=== PATIENT | female | born 1955 | race Caucasian/White ===

== ENCOUNTER 2017-12-11 04:52 | Day surgery (SDC) | payer OTHER ==
[2017-12-09 17:23] VITALS: BMI 27.6
[2017-12-11] MEDS ORDERED: CLINDAMYCIN 300 MG PREMIX IVPB 300 MG/50 ML BAG IVPB ONE (07:14)
[2017-12-11] MEDS ORDERED: PHENAZOPYRIDINE HCL 100 MG TABLET (FP) PO ONE ×2 (07:15→07:41)
[2017-12-11] MEDS ORDERED: BUPIVACAINE HCL/PF 0.5% (5MG/ML) 10 ML VIAL ONE (07:23)
[2017-12-11] MEDS ORDERED: fentaNYL CITRATE 250 MCG/5 ML VIAL ONE (07:24)
[2017-12-11] MEDS ORDERED: ePHEDrine SULFATE 50 MG/1 ML AMPULE ONE (07:24)
[2017-12-11] MEDS ORDERED: ROCURONIUM BROMIDE 50 MG/5 ML VIAL ONE ×3 (07:24)
[2017-12-11] MEDS ORDERED: SUCCINYLCHOLINE CHLORIDE 200 MG/10 ML VIAL ONE (07:24)
[2017-12-11] MEDS ORDERED: PROPOFOL 20 ML ONE ×3 (07:24)
[2017-12-11] MEDS ORDERED: MIDAZOLAM HCL 2 MG/2 ML SINGLE DOSE VIAL ONE (07:25)
[2017-12-11] MEDS ORDERED: LIDOCAINE HCL/PF 2% SDV 5ML VIAL ONE (07:31)
--- NOTE | 2017-12-11 07:41 | HP ---
History & Physical Update - History History: No Change - Physical Physical: No Change - Assessment Assessment: No Change - Plan Plan: No Change (no changes since visit with Dr Tsai on 12/09/17)
[2017-12-11] MEDS ORDERED: DESFLURANE GAS 240 ML BOTTLE IH ONE (08:49)
[2017-12-11] MEDS ORDERED: GENTAMICIN SO4 80 MG/2 ML VIAL ONE (08:50)
[2017-12-11] MEDS ORDERED: GENTAMICIN SO4 80 MG/2 ML VIAL IVPB ONE (09:01)
[2017-12-11] MEDS ORDERED: DEXAMETHASONE SOD PHOSPHATE 4 MG/1 ML VIAL ONE (09:03)
[2017-12-11] MEDS ORDERED: PROMETHAZINE HCL 25 MG/1 ML VIAL IVPUSH PRN (09:12)
[2017-12-11] MEDS ORDERED: BUPIVACAINE HCL/PF 0.5% (5MG/ML) 10 ML VIAL IJ ONE ×3 (10:08→10:29)
[2017-12-11] MEDS ORDERED: NEOSTIGMINE METHYLSULFATE 0.5 MG/ML - 10 ML MDV ONE (10:34)
[2017-12-11] MEDS ORDERED: GLYCOPYRROLATE 0.2 MG/1 ML VIAL ONE (10:42)
[2017-12-11] MEDS: ACETAMINOPHEN 1000 MG/100 ML VIAL (NON FORMULARY) IVPB ONE ×2 (11:00→18:54)
[2017-12-11] MEDS ORDERED: oxyCODONE HCL 5 MG TABLET PO PRN ×2 (11:10)
[2017-12-11] MEDS ORDERED: LEVOTHYROXINE NA 50 MCG TABLET (FP) PO SCH (11:15)
[2017-12-11] MEDS ORDERED: LACTATED RINGERS SOLUTION 1,000 ML IV SCH (11:15)
--- NOTE | 2017-12-11 11:27 | OP ---
DATE OF OPERATION: 12/11/2017 PREOPERATIVE DIAGNOSIS: Cervical dysplasia. OPERATION: Laparoscopic robotic total hysterectomy and bilateral salpingectomy. SURGEON: Rin Abad MD SCALE SHOOTER: LORELEI Ram ANESTHESIA: General. ANESTHESIOLOGIST: Nurse datastage developer, Giorgio Pisano MD DESCRIPTION OF PROCEDURE: The patient was taken to the operating room and placed in dorsal lithotomy position, prepped and draped in the usual sterile fashion. A time-out was performed in accordance with hospital regulation. Brown catheter was placed into the bladder. Specimen was placed in the vagina. Anterior lip of the cervix was grasped with a single-tooth tenaculum. The cervix was then dilated to accommodate the uterine manipulator. The manipulator was then placed around the cervix. Attention was then drawn to the umbilicus where an 8-mm umbilical incision was made. Veress needle was inserted into the cavity. Approximately 3-4 L of CO2 was insufflated in the cavity. The Veress needle was then removed, and an 8-mm trocar was then inserted. Laparoscope and camera attached. Visualization revealed small uterus, normal tubes and ovaries. Trocars were then placed on the left side in the upper abdomen, and 5mm cannula after 5-mm incision was made, and an 8-mm incision and trocar was made parallel to the umbilical incision. Trocar was inserted under direct visualization. Two trocars were placed on the right side parallel to the umbilical incision 8 mm apart. Using scalpel, incisions were made 8 mm, and trocars were then inserted under direct visualization. After placement of the trocars was confirmed, Da Sahil robot was then side docked to the patient's arm. Trocars were then inserted onto the Da Sahil robot, and laparoscopic tenaculum and Endo Jorge Luis were then placed on the right side, and vessel sealer was then directly placed inside close to the uterus. After the instruments had been placed, attention was then drawn to the console where control of the console was done. Tenaculum was then used to grasp the uterus, and utero-ovarian ligament was identified, clamped, and cut using vessel sealer. The uterine artery was identified, clamped, and cut using vessel sealer. Vesicular uterine reflection was then entered. The bladder was then bluntly dissected out of the operative field. The cardinal ligaments then broad ligaments were identified, clamped, and cut down to the level of the cervix. The uterine manipulator was identified, and Endo Jorge Luis were then used to cut the vagina. Uterine manipulator was seen. The same procedure was then repeated on the right side after bladder had been bluntly dissected out of the way. All ligaments were then cut in order, and the Endo Jorge Luis were then used to cut the vagina away from the cervix. Hemostasis was achieved. The tubes were bilaterally grasped, and the vessel sealer was then used to coagulate and cut the tubes away from the ovaries. The ovaries were very normal. The uterus and the cervix were then removed from the vagina as well as both left and right tubes. Hemostasis was achieved. Ureters were identified and found to have deep peristalsis. The 2-0 V-Lock suture was introduced into the abdomen. Da Sahil robot was used to close the vaginal cuff in a continuous fashion over sewing nursing home. Hemostasis was achieved, and all instruments were then removed. The tube was removed from the abdomen, and needle was removed from the abdomen. Incisions were then closed using 4-0 Biosyn suture in subcuticular fashion. The wound was washed and dressed. The patient had tolerated the procedure well. Estimated blood loss less than 25 mL. Instrument and pack count were noted to be normal. RIN ABAD M.D. [id number] MTDD
--- NOTE | 2017-12-11 11:52 | OP ---
<Elaine Vogel - Last Filed: 12/11/17 11:47> Operative Note - Note: Operative Date: 12/11/17 Operation: robotic total hysterectomy with bilateral salpingectomy Surgeon: Iman Tsai Cloth Folder Hand: Carol Bloom Anesthesiologist/HOUSING RELOCATION: Trent Graham Anesthesia: General Specimens Removed: hysterectomy, bialateral salpingx Estimated Blood Loss (mls): 20 Drains, Volume Out (mls): 75 (cheung) Fluid Volume Replaced (mls): 800 Operative Report Dictated: Yes <Iman Tsai - Last Filed: 12/12/17 10:10> Operative Note - Note: Operation: Robotic laparoscopic Total hysterectomy. bilateral salpingectomy Estimated Blood Loss (mls): 25
[2017-12-11] MEDS ORDERED: GENTAMICIN 80 MG PREMIXED IVPB 80 MG/100 ML BAG IVPB SCH (15:32)
[2017-12-11] MEDS ORDERED: IBUPROFEN 800 MG/8 ML IJ IVPB PRN (16:03)
[2017-12-11] MEDS: ACETAMINOPHEN 650 MG/20.3 ML ORAL SOLUTION (CUPS) PO SCH ×2 (17:47→23:05)
[2017-12-11 21:27] LABS: BASO % 0.3 % (0-2.0); HEMATOCRIT 36.6 % (32.4-45.2); LYMPH % 10.7 % (8-40); MCH 27.9 pg (25.7-33.7); MCHC 32.8 g/dl (32.0-36.0); MEAN CELL VOLUME 84.9 fl (80-96); MEAN PLT VOLUME 7.8 fl (7.5-11.1); MONO % 2.4 % (3.8-10.2); NEUT % 86.6 % (42.8-82.8); PLATELET COUNT 234 K/MM3 (134-434); RBC 4.31 M/mm3 (3.60-5.2); RDW 15.5 % (11.6-15.6); WHITE BLOOD COUNT 11.3 K/mm3 (4.0-10.0)
[2017-12-11 21:53] LABS: ANION GAP 10 MMOL/L (8-16); BLOOD UREA NITROGEN 14 mg/dL (7-18); CALCIUM 8.2 mg/dL (8.5-10.1); CHLORIDE 105 mmol/L (98-107); CO2 22 mmol/L (21-32); CREATININE 0.9 mg/dL (0.55-1.02); GLUCOSE,RANDOM 140 mg/dL (74-106); POTASSIUM 4.4 mmol/L (3.5-5.1); SODIUM 137 mmol/L (136-145)
[2017-12-11] MEDS ORDERED: traZODone HCL 100 MG TABLET (FP) PO SCH (22:00)
[2017-12-11] MEDS ORDERED: ROSUVASTATIN CA 10 MG TABLET (FP) PO SCH (22:00)
[2017-12-11] MEDS ORDERED: PATIENT'S OWN MEDICATION (NON-FORMULARY) (Vortioxetine Hydrobromide [Trintellix] 10 MG) PO SCH (22:00)
[2017-12-12] MEDS: ACETAMINOPHEN 650 MG/20.3 ML ORAL SOLUTION (CUPS) PO SCH (06:05)
[2017-12-12] MEDS ORDERED: LEVOTHYROXINE NA 50 MCG TABLET (FP) PO SCH (07:00)
[2017-12-12 08:00] LABS: HEMATOCRIT 36.3 % (32.4-45.2); HEMOGLOBIN 11.6 GM/dL (10.7-15.3); MCH 27.2 pg (25.7-33.7); MCHC 32.1 g/dl (32.0-36.0); MEAN CELL VOLUME 84.7 fl (80-96); MEAN PLT VOLUME 7.6 fl (7.5-11.1); PLATELET COUNT 236 K/MM3 (134-434); RBC 4.28 M/mm3 (3.60-5.2); RDW 15.4 % (11.6-15.6); WHITE BLOOD COUNT 13.4 K/mm3 (4.0-10.0)
[2017-12-12 08:45] LABS: CHLORIDE 104 mmol/L (98-107); POTASSIUM 4.3 mmol/L (3.5-5.1); SODIUM 136 mmol/L (136-145)
[2017-12-12 08:51] LABS: ANION GAP 8 MMOL/L (8-16); BLOOD UREA NITROGEN 14 mg/dL (7-18); CALCIUM 7.8 mg/dL (8.5-10.1); CO2 24 mmol/L (21-32); CREATININE 0.8 mg/dL (0.55-1.02); GLUCOSE,RANDOM 98 mg/dL (74-106)
[2017-12-12 09:19] VITALS: BP 125/76; PULSE 68; TEMP 97.8
[2017-12-12] MEDS ORDERED: GENTAMICIN 80 MG PREMIXED IVPB 80 MG/100 ML BAG IVPB SCH (10:00)
[2017-12-12] MEDS ORDERED: ENOXAPARIN NA (PORCINE) 30 MG/0.3 ML DISP.SYRIN SQ SCH (10:00)
[2017-12-12] MEDS ORDERED: CALCIUM CARBONATE 650 MG TABLET PO SCH (10:00)
[2017-12-12] MEDS ORDERED: ENOXAPARIN NA (PORCINE) 40 MG/0.4 ML DISP.SYRIN SQ SCH (10:00)
--- NOTE | 2017-12-12 10:25 | DS ---
Physical Exam: SUBJECTIVE: Patient seen and examined. No acute events since surgery per RN notes. Doing well. C/o mild incisional tenderness. Adequate pain control via PRN meds. She is oob and ambulating unassisted. Voiding spontaneously. Tolerating PO diet. Denies n/v/f/c, CP or SOB. OBJECTIVE: Vital Signs Temperature 97.8 F 12/12/17 09:17 Pulse Rate 68 12/12/17 09:17 Respiratory Rate 20 12/12/17 09:17 Blood Pressure 125/76 12/12/17 09:17 O2 Sat by Pulse Oximetry (%) 96 12/11/17 14:02 PHYSICAL EXAM GENERAL: The patient is awake, alert, and fully oriented, in no acute distress. HEAD: Normal with no signs of trauma. EYES: PERRL, extraocular movements intact, sclera anicteric, conjunctiva clear. ENT: Ears normal, nares patent, oropharynx clear without exudates, moist mucous membranes. NECK: Trachea midline, full range of motion, supple. LUNGS: Breath sounds equal, clear to auscultation bilaterally, no wheezes, no crackles, no accessory muscle use. HEART: Regular rate and rhythm, S1, S2 without murmur, rub or gallop. ABDOMEN: All surgical ports c/d/i. No hematoma. EXTREMITIES: 2+ pulses, warm, well-perfused, no edema. NEUROLOGICAL: Cranial nerves II through XII grossly intact. Normal speech, gait not observed. PSYCH: Normal mood, normal affect. SKIN: Warm, dry, normal turgor, no rashes or lesions noted. LABS CBC,CMP WBC 13.4 K/mm3 (4.0-10.0) H 12/12/17 06:10 RBC 4.28 M/mm3 (3.60-5.2) 12/12/17 06:10 Hgb 11.6 GM/dL (10.7-15.3) 12/12/17 06:10 Hct 36.3 % (32.4-45.2) 12/12/17 06:10 MCV 84.7 fl (80-96) 12/12/17 06:10 MCH 27.2 pg (25.7-33.7) 12/12/17 06:10 MCHC 32.1 g/dl (32.0-36.0) 12/12/17 06:10 RDW 15.4 % (11.6-15.6) 12/12/17 06:10 Plt Count 236 K/MM3 (134-434) 12/12/17 06:10 MPV 7.6 fl (7.5-11.1) 12/12/17 06:10 Absolute Neuts (auto) 9.8 K/mm3 (1.5-8.0) H 12/11/17 20:15 Neutrophils % 86.6 % (42.8-82.8) H D 12/11/17 20:15 Lymphocytes % 10.7 % (8-40) D 12/11/17 20:15 Monocytes % 2.4 % (3.8-10.2) L 12/11/17 20:15 Eosinophils % 0.0 % (0-4.5) D 12/11/17 20:15 Basophils % 0.3 % (0-2.0) 12/11/17 20:15 Nucleated RBC % 0 % (0-0) 12/11/17 20:15 Sodium 136 mmol/L (136-145) 12/12/17 06:10 Potassium 4.3 mmol/L (3.5-5.1) 12/12/17 06:10 Chloride 104 mmol/L (98-107) 12/12/17 06:10 Carbon Dioxide 24 mmol/L (21-32) 12/12/17 06:10 Anion Gap 8 MMOL/L (8-16) 12/12/17 06:10 BUN 14 mg/dL (7-18) 12/12/17 06:10 Creatinine 0.8 mg/dL (0.55-1.02) 12/12/17 06:10 Creat Clearance w eGFR > 60 (>60) 12/12/17 06:10 Random Glucose 98 mg/dL (74-106) 12/12/17 06:10 Calcium 7.8 mg/dL (8.5-10.1) L 12/12/17 06:10 HOSPITAL COURSE: Date of Admission:12/11/17 Date of Discharge: 12/12/17 The patient was admitted to the Med-Surg Unit s/p Robotic laparoscopic Total hysterectomy. bilateral salpingectomy. The day of surgery, the patient ambulated the hallways without assistance. Narcotic and non-narcotic pain management control was achieved with an oral and IV approach. Kaylene-operative IV ABX were administered. DVT prophylaxis was achieved with SCDs and early ambulation. Narcotic scripts and or muscle relaxants were checked with [employer] PHOTOGRAPHIC EQUIPMENT TECHNICIAN prior to escribe. The discharge instructions and an oral pain management plan were reviewed with the patient. All questions answered. Above plan discussed with Dr. Tsai and agreed. Minutes to complete discharge: 15 Visit type - Case Type Case Type: Scheduled - New patient This patient is new to me today: Yes Date on this admission: 12/12/17
--- NOTE | 2017-12-12 11:06 | PN ---
Progress Note, Physician Chief Complaint: day 1 s/p robotic assisted laparoscopic hysterectomy - Current Medication List Current Medications: Active Medications Calcium Carbonate (Calcium Carbonate -) 1,300 mg PO DAILY [facility] Last Admin: 12/12/17 09:50 Dose: 1,300 mg Enoxaparin Sodium (Lovenox -) 40 mg SQ DAILY [facility] Last Admin: 12/12/17 09:51 Dose: 40 mg Lactated Ringer's (Lactated Ringers Solution) 1,000 mls @ 125 mls/hr IV ASDIR [facility] Last Admin: 12/11/17 23:06 Dose: 125 mls/hr Ibuprofen (Caldolor Injection -) 800 mg IVPB Q6H PRN PRN Reason: PAIN LEVEL 1-5 Last Admin: 12/11/17 15:55 Dose: 800 mg Levothyroxine Sodium (Synthroid -) 50 mcg PO DAILY@0700 [facility] Last Admin: 12/12/17 06:05 Dose: 50 mcg Non-Formulary Medication (Vortioxetine Hydrobromide [Trintellix]) 10 mg PO [facility] Last Admin: 12/11/17 21:09 Dose: 10 mg Oxycodone HCl (Roxicodone -) 5 mg PO Q6H PRN PRN Reason: PAIN LEVEL 1-5 Oxycodone HCl (Roxicodone -) 10 mg PO Q6H PRN PRN Reason: PAIN LEVEL 6-10 Promethazine HCl (Phenergan Injection -) 12.5 mg IVPUSH Q6H PRN PRN Reason: NAUSEA-FOR RESCUE AFTER 15 MIN Rosuvastatin Calcium (Crestor -) 10 mg PO [facility] Last Admin: 12/11/17 21:08 Dose: 10 mg Trazodone HCl (Desyrel -) 200 mg PO [facility] Last Admin: 12/11/17 21:08 Dose: 200 mg - Objective Vital Signs: Vital Signs Temperature 97.8 F 12/12/17 09:17 Pulse Rate 68 12/12/17 09:17 Respiratory Rate 20 12/12/17 09:17 Blood Pressure 125/76 12/12/17 09:17 O2 Sat by Pulse Oximetry (%) 96 12/11/17 14:02 Labs: CBC, BMP 12/12/17 06:10 12/12/17 06:10 Assessment/Plan Doing well after GA. No anesthetic issues/complications, pain well tolerated- pt is for discharge today
--- NOTE | 2017-12-16 09:32 | PATH ---
Surgical Pathology Report Patient Name: NOMI NUNO [facility]. Rec. #: [id number] /Age/Gender: 1955 (Age: 62) / F Account: [id number] Location: AMBULATORY SURG Taken: 12/11/2017 Received: 12/11/2017 Reported: 12/16/2017 Physicians: Iman Tsai M.D. Specimen(s) Received A: LEFT FALLOPIAN TUBE B: RIGHT FALLOPIAN TUBE C: UTERUS AND CERVIX Clinical History A Dysplasia Final Diagnosis A. FALLOPIAN TUBE, LEFT, SALPINGECTOMY: FALLOPIAN TUBE WITH DENSE ADHESIONS AND STROMAL FIBROSIS (INCLUDING FULL LUMINAL PORTION AND FIMBRIATED END). B. FALLOPIAN TUBE, RIGHT, SALPINGECTOMY: FALLOPIAN TUBE WITH DENSE ADHESIONS, STROMAL FIBROSIS, AND SMALL PARATUBAL CYST (INCLUDING FULL LUMINAL PORTION). C. UTERUS AND CERVIX, ROBOTIC LAPAROSCOPIC HYSTERECTOMY: FOCAL HIGH GRADE SQUAMOUS INTRAEPITHELIAL LESION (CERVICAL INTRAEPITHELIAL NEOPLASIA 3/ SHALINI 3) WITH GLANDULAR INVOLVEMENT IN THREE QUADRANTS (3-6:00, 6-9:00, 9-12:00). SURGICAL MARGINS ARE NEGATIVE. REMAINDER OF CERVIX WITH CHRONIC INFLAMMATION, RARE STROMAL MICROCALCIFICATIONS, AND BIOPSY SITE CHANGES. ATROPHIC ENDOMETRIUM. INTRAMURAL LEIOMYOMA. SEE COMMENT. 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 Proliferative marker, Ki-67, utilized to evaluate this case. Electronically Signed Aura Hampton M.D. Gross Description A. Received in formalin labeled "left fallopian tube," is a 3 cm in length fimbriated portion of fallopian tube. The outer surface is barnes mcrae with adhesions. Sectioning reveals an unremarkable lumen. Tile Picker sections including the fimbria are submitted in one cassette. B. Received in formalin labeled "right fallopian tube," is a 4 cm in length portion of fallopian tube. No fimbria are present. The outer surface is barnes-pink with adhesions. Sectioning reveals an unremarkable lumen. Tile Picker sections are submitted in one cassette. C. Received in formalin labeled "uterus and cervix," is a 31 g uterus with an attached cervix and no attached adnexa. The specimen measures 6.5 cm from superior to inferior, 3.5 cm from left to right and 2.2 cm from anterior to posterior. The serosa is pink-barnes and smooth. The attached cervix measures 3 cm in length and averages 2 cm in diameter. The ectocervix is pink-barnes and smooth. The endocervix is unremarkable. The endometrial cavity measures 3 cm in length and 1.6 cm from cornu to cornu. The endometrium is barnes-pink and averages 0.1 cm in thickness. The myometrium displays a 0.4 cm greatest dimension intramural nodule. No areas of hemorrhage or necrosis are identified. The remaining myometrium is barnes-pink and measures up to 1.2 cm in thickness. Tile Picker sections are submitted in 13 cassettes as follows: 1-1:00 cervix; 2-2:00 cervix; 3-3:00 cervix; 4-4:00 cervix; 5-5:00 cervix; 6-6:00 cervix; 7-7:00 cervix; 8-8:00 cervix; 9-9:00 cervix; 10-10:00 cervix; 11-11:00 cervix; 12-12:00 cervix; 40-37-oddpmvey endomyometrium with intramural nodule; 86-90-[id number] endomyometrium. 12/11/2017 [facility]2017
== END 2017-12-12 12:15 | disposition home or self-care (01) ==
LOC: JASUSAT 04:52 → J3W 13:49 → JASUSAT 12-12 12:15
PROVIDERS: ATTEND Obstetrics & Gynecology
PROC: 8E0W4CZ Robotic Assisted Procedure of Trunk Region, Percutaneous Endoscopic Approach (ICD-10-PCS; 2017-12-11)
PROC: 0UT94ZL Resection of Uterus, Supracervical, Percutaneous Endoscopic Approach (ICD-10-PCS; principal; 2017-12-11 08:00)
PROC: 0UT74ZZ Resection of Bilateral Fallopian Tubes, Percutaneous Endoscopic Approach (ICD-10-PCS; 2017-12-11 08:00)
DX: N87.9 Dysplasia of cervix uteri, unspecified (principal)
CPT/HCPCS: 58542; S2900; 36415; 80048; 85025; 85027; 86850; 86900; 86901; 88305-TC; 88307-TC; 94010; 94760; J0131

== ENCOUNTER 2022-07-19 19:31 | Emergency (ER) | payer OTHER ==
[2022-07-19 19:41] VITALS: BP 146/84; PULSE 81; RESP 18; TEMP 97; BMI 18.7
[2022-07-19] MEDS ORDERED: DIPHTH,PERTUSS(ACELL),TET 0.5 ML DISP.SYRIN IM ONE (20:18)
[2022-07-19] MEDS ORDERED: CLINDAMYCIN HCL 300 MG CAPSULE PO ONE (20:34)
[2022-07-19] MEDS ORDERED: CLINDAMYCIN HCL 150 MG CAPSULE (FP) ONE (21:04)
== END 2022-07-19 21:09 | disposition home or self-care (01) ==
LOC: JER 19:31
PROC: 3E0234Z Introduction of Serum, Toxoid and Vaccine into Muscle, Percutaneous Approach (ICD-10-PCS; principal; 2022-07-19)
DX: T24.002A Burn of unspecified degree of unspecified site of left lower limb, except ankle and foot, initial encounter (principal); T22.012A Burn of unspecified degree of left forearm, initial encounter; X06.2XXA Exposure to ignition of other clothing and apparel, initial encounter
CPT/HCPCS: 99284-25